=== PATIENT | female | born 1985 | race Caucasian/White ===

== ENCOUNTER 2017-07-14 14:07 | Emergency (ER) | payer OTHER ==
[~2017-07-14] VITALS: Ht 162.6 cm; Wt 113.4 kg
[2017-07-14] MEDS ORDERED: IMIPRAMINE PAM150 MG PO (14:29)
[2017-07-14] MEDS ORDERED: CLONAZEPAM 1 MG1 M1 PO (14:29)
[2017-07-14] MEDS ORDERED: JOLESSA1 EACH PO (14:31)
[2017-07-14 14:37] LABS: ABSOLUTE BASOPHILS 0.1 thou/uL (0.0-0.2); ABSOLUTE EOSINOPHILS 0.3 thou/uL (0.0-0.7); ABSOLUTE LYMPHOCYTES 2.9 thou/uL (0.8-5.3); ABSOLUTE MONOCYTES 0.8 thou/uL (0.0-1.2); ABSOLUTE NEUTROPHILS 7.2 thou/uL (1.6-8.1); BASOPHILS 0.7 %; EOSINOPHILS 3.1 %; HEMATOCRIT 41.4 % (37.0-47.0); HEMOGLOBIN 13.6 gm/dL (12.0-15.0); MCH 28.3 pg (26.0-34.0); MCHC 32.9 g/dL (28.0-37.0); MPV 10.2 fl. (7.2-11.1); NUCLEATED RBCS 0 /100WBC; PLATELET COUNT* 272 thou/uL (150-400); POLYS 63.2 %; RBC 4.82 mil/uL (4.20-5.00); RDW-CV 13.6 % (10.5-14.5); WBC 11.3 thou/uL (4.0-11.0)
[2017-07-14 14:50] LABS: CALCIUM 9.4 mg/dL (8.5-10.1); CREATININE 1.1 mg/dL (0.6-1.3); POTASSIUM 3.2 mmol/L (3.5-5.1)
[2017-07-14 14:55] LABS: ALBUMIN 3.5 g/dL (3.4-5.0); TOTAL BILIRUBIN 0.3 mg/dL (<0.1-1.0); TOTAL PROTEIN 8.4 g/dL (6.4-8.2)
[2017-07-14 15:20] LABS: URINE BILIRUBIN NEGATIVE (Negative); URINE BLOOD 2+ (Negative); URINE CLARITY SL CLOUDY; URINE COLOR YELLOW; URINE GLUCOSE-RANDOM NEGATIVE (Negative); URINE KETONES TRACE (Negative); URINE LEUKOCYTES-REFLEX NEGATIVE (Negative); URINE NITRITE-REFLEX NEGATIVE (Negative); URINE PROTEIN 1+ (Negative)
[2017-07-14 15:30] LABS: MUCUS >6 Heavy strn/LPF (None Seen); SQUAMOUS >10 Many /LPF (0-3)
[2017-07-14 15:31] LABS: CRYSTALS None Seen /LPF (None Seen); URINE RBC 3-10 Few /HPF (0-2); URINE WBC-REFLEX 6-15 Few /HPF (0-5)
[2017-07-14 15:32] LABS: HYALINE CASTS 0-3 Few /LPF (None Seen)
[2017-07-14] MEDS ORDERED: ZOFRAN ODT4 MG PO (15:43)
[2017-07-14] MEDS ORDERED: PROAIR HFA8.5 GM INH (15:43)
[2017-07-14] MEDS ORDERED: KEFLEX500 M1 PO (15:43)
[2017-07-14] MEDS ORDERED: PROMETHAZINE V473 ML PO (15:43)
[2017-07-14] MEDS ORDERED: TESSALON PERLE100 MG PO (15:43)
[2017-07-14] MEDS ORDERED: MEDROLDOSEPACK PO (15:44)
[2017-07-14 16:39] VITALS: BP 137/85
== END 2017-07-14 16:26 | disposition home or self-care (01) ==
LOC: M.ERS 14:07
PROVIDERS: Physician Assistant
DX: J18.9 Pneumonia, unspecified organism (principal); R11.2 Nausea with vomiting, unspecified; G43.909 Migraine, unspecified, not intractable, without status migrainosus; F41.0 Panic disorder [episodic paroxysmal anxiety]; Z88.8 Allergy status to other drugs, medicaments and biological substances

== ENCOUNTER 2020-09-10 08:50 | Emergency (ER) | payer OTHER ==
[~2020-09-10] VITALS: Ht 162.6 cm; Wt 90.7 kg
[~2020-09-10 08:50] MED LIST: CLONAZEPAM 1 MG1 M1 PO; IMIPRAMINE PAM150 MG PO; JOLESSA1 EACH PO; KEFLEX500 M1 PO; MEDROLDOSEPACK PO; PROAIR HFA8.5 GM INH; PROMETHAZINE V473 ML PO; TESSALON PERLE100 MG PO; ZOFRAN ODT4 MG PO
[2020-09-10 09:53] VITALS: BP 130/85
== END 2020-09-10 09:53 | disposition home or self-care (01) ==
LOC: M.ERS 08:50
DX: S00.83XA Contusion of other part of head, initial encounter (principal); G43.909 Migraine, unspecified, not intractable, without status migrainosus; Z88.8 Allergy status to other drugs, medicaments and biological substances; W22.8XXA Striking against or struck by other objects, initial encounter; Y93.89 Activity, other specified; Y92.89 Other specified places as the place of occurrence of the external cause; Y99.8 Other external cause status